=== PATIENT | female | born 1990 | race Caucasian/White ===

== ENCOUNTER → 2018-05-19 | Outpatient (CLI) | payer BC ==
--- NOTE | 2018-05-19 16:46 | KCIC ---
PREG MORE THAN OR EQ TO 14 WKS History: Routine mid anatomy scan Comparison: None. Findings: Multiple sonographic images of the uterus are submitted. There is a single intrauterine fetus in breech presentation. There is anterior placenta. Cervix measured 3.8 cm. There is demonstrable cardiac activity 140 bpm. Amniotic fluid volume is within normal limits, estimated JENIFER about 14.5 cm. There is no demonstrable abnormality of the visualized spine. There is visualization of stomach, bladder, midline nose/lips. There is four-chamber view of the heart. 2 kidneys were visualized. 2 upper and lower extremities were visualized. movement was noted by technologist. There is no abnormality of the visualized brain. There is midline cord insertion, apparently three-vessel cord. Maternal adnexal regions are not demonstrated. Biometry data are as follows: Biparietal diameter 5.03 cm corresponds 21 weeks 2 days, 93rd percentile Head circumference 17.99 cm corresponds with 20 weeks 3 days, 69th percentile Abdominal circumference 15.71 cm corresponds with 20 weeks 6 days, 77th percentile Femur length 3.12 cm corresponds with 19 weeks 5 days, 36 percentile Adjusted ultrasound age 20 weeks 4 days with estimated delivery date of 10/02/2018. LMP date 19 weeks 6 days with estimated delivery date of 10/07/2018. Estimated weight 349 g +/- 52 g HC/AC ratio within normal limits 1.15 Impression: 1. There is a single viable intrauterine fetus in breech presentation, adjusted ultrasound age 20 weeks 4 days with estimated delivery date by ultrasound of 10/02/2018. Of the visualized anatomy, no significant abnormality is demonstrated. Electronically signed by: Juanito Billingsley MD (05/19/2018 4:41 PM) [id number]
== END | disposition home or self-care (01) ==
LOC: KCIC US 15:02
PROVIDERS: ATTEND Midwife
DX: O32.1XX0 Maternal care for breech presentation, not applicable or unspecified (principal); Z3A.20 20 weeks gestation of pregnancy
CPT/HCPCS: 76805